=== PATIENT | female | born 1960 | race African-American/Black ===

== ENCOUNTER 2018-03-30 13:30 | Emergency (ER) | payer OTHER ==
[~2018-03-30] VITALS: Ht 170.2 cm; Wt 95.0 kg
[2018-03-30] MEDS ORDERED: IBUPROFEN 600MG TABLET PO STA (16:29)
[2018-03-30] MEDS ORDERED: BACITRACIN ZINC OINT UDPKT TOP ONE (18:15)
[2018-03-30] MEDS ORDERED: LIDOCAINE HCL 1% 20ML VIAL (Pyxis) INJ MC ONE (18:15)
[2018-03-30] MEDS ORDERED: LIDOCAINE HCL/PF 1% 10 MG/ML 5ML VIAL IJ SCH (19:03)
[2018-03-30] MEDS ORDERED: TETANUS, DIPHTHERIA, PERTUSSIS VAC/PF 0.5ML (>7YR OLD) IM ONE (19:45)
[2018-03-30 20:19] VITALS: BP 132/83
== END 2018-03-30 20:21 | disposition home or self-care (01) ==
LOC: ER 17:50
DX: S62.636B Displaced fracture of distal phalanx of right little finger, initial encounter for open fracture (principal); J45.909 Unspecified asthma, uncomplicated; W31.89XA Contact with other specified machinery, initial encounter; Y93.89 Activity, other specified; Y92.89 Other specified places as the place of occurrence of the external cause; Y99.8 Other external cause status
CPT/HCPCS: 29130; 73130; 90471; 90715; 99284; C1893; J3490